=== PATIENT | male | born 1975 | race Caucasian/White ===

== ENCOUNTER 2016-06-15 14:24 | Emergency (ER) | payer SELFPAY ==
[2016-06-15 15:07] VITALS: TEMP 98
[2016-06-15 15:08] VITALS: BMI 17.9
[2016-06-15] MEDS ORDERED: LIDOCAINE 2% 5 ML (PRESERVATIVE FREE) VIAL INF ONE (15:27)
--- NOTE | 2016-06-15 15:39 | EDPRACDOC ---
- General Information Chief Complaint: Wound Information Source: Patient Mode of Arrival:: Car Allergies/Adverse Reactions: Allergies Allergy/AdvReac Type Severity Reaction Status Date / Time No Known Allergies Allergy Verified 10/01/11 15:41 - History of Present Illness Onset: today HPI: PT PRESENTS TODAY WITH LACERATION TO 3RD AND 4TH KNUCKLES AFTER PUNCHING A WINDOW. NO OTHER INJURY REPORTED. STATES GOT MAD AT HIS KIDS. STATES NEEDS TETANUS. - Tetanus Status Last Tetanus: No - Pain Pain Severity: Mild Bleeding: Reports: Controlled Associated Signs & Symptoms: Reports: None ED Past Medical History - History Reviewed Yes Nurses notes reviewed and agree except as marked - Social Medical History Smoking Status: Heavy tobacco smoker (5 or more cigarettes/day or daily pipe/ cigar) EDM Review of Systems - Review of Systems ROS Negative Except as Marked: Yes All systems reviewed and were negative except as marked Constitutional: No Symptoms Reported Respiratory: No Symptoms Reported Cardiovascular: No Symptoms Reported Gastrointestinal: No Symptoms Reported Neurological: No Symptoms Reported Musculoskeletal: Hand Integumentary: Wound - Physical Exam Constitutional: Alert (Awake), No apparent distress Oriented to: Time, Person, Place Last recorded Vital Signs: Last Vital Signs Temp 98.0 F 06/15/16 15:06 Pulse 80 06/15/16 15:06 Resp 20 06/15/16 15:06 BP 128/76 06/15/16 15:06 Pulse Ox 94 06/15/16 15:06 Oxygen Pulse Oxygen Saturation 94 O2 Device Oxygen Flow Rate Fraction of Inspired Oxygen ( FIO2) - HEENT Head: Normal Eye Exam: Normal Neck: Normal, Denies Pain, Midline - Respiratory/Cardiovascular Respiratory: Normal - CTA Cardiovascular: Normal - GI Palpation: Normal Tenderness: Non tender - Musculoskeletal Back: Normal Extremities: Other (NOTED CIRCULAR FLAP LIKE LACERATION TO RIGHT THIRD KNUCKLE, ABOUT 1.5 CM AND 1 CM CIRCULAR FLAP TO 4TH KNUCKLE; NO APPARENT DEFORMITY; OOZING; PT HAS FULL ROM OF HAND/DIGITS.) - Integumentary Skin: Normal Lymphatics: Normal - Neurologic Cerebellar: Normal Mood Description: Normal Thought: Coherent ED Procedures - Suture/Laceration Suture #1 Right Hand Wound Length (cm): 1.5 Wound's Depth, Shape: flap Wound Explored: clean Betadine Prep?: Yes Anesthesia: 1% Lidocaine Volume Anesthetic (ccs): 2 Wound Margins: Revised Wound Repaired With: Sutures Suture Size/Type: 4:0, nylon Number of Sutures: 6 Layer Closure?: No Suture #2 Right Hand Wound Length (cm): 1.0 Wound's Depth, Shape: flap Wound Explored: clean Betadine Prep?: Yes Anesthesia: 1% Lidocaine Volume Anesthetic (ccs): 2 Wound Margins: Revised Wound Repaired With: Sutures Suture Size/Type: 4:0, nylon Number of Sutures: 3 Layer Closure?: No - Additional Information SUGGESTED THAT PT GET AN XRAY TO LOOK FOR FX/FB AND PT REFUSED. Decision Time to Discharge: 16:09 - Departure Disposition: Home Condition: Good Final Diagnosis: [id number] Instructions: Laceration (ED) Education/Counseling Given To: Patient Education/Counseling Given Regarding: Diagnosis, Treatment, Follow Up Referrals: None,No Provider [Primary Care Provider] - One Week Additional Instructions: KEEP WOUND CLEAN. CHANGE BANDAGE DAILY. DO NOT SOAK SUTURES. HAVE REMOVED IN 7-10 DAYS.
[2016-06-15] MEDS ORDERED: DIPHTHERIA AND TETANUS (ADULT) 0.5 ML SYR IM ONE (15:51)
[2016-06-15 16:19] VITALS: BP 132/78; PULSE 78
== END 2016-06-15 16:16 | disposition home or self-care (01) ==
LOC: EDMC 14:24
DX: S61.411A Laceration without foreign body of right hand, initial encounter (principal); W25.XXXA Contact with sharp glass, initial encounter; Y93.89 Activity, other specified; Z23 Encounter for immunization
CPT/HCPCS: 12001; 90471; 90714; 99282; J2001